=== PATIENT | male | born 1985 | race Caucasian/White ===

== ENCOUNTER 2019-01-04 13:01 | Emergency (ER) | payer BC, OTHER ==
[2019-01-04 13:49] LABS: #Basophils 0.1 thou/uL (0.0-0.2); #Eosinphils 0.1 thou/uL (0.0-0.7); #Lymphocytes 1.6 thou/uL (1.20-3.40); #Monocytes 0.6 thou/uL (0.11-0.59); #Neutrophils 5.4 thou/uL (1.40-6.50); %Basophils 1.1 % (0.0-1.0); %Eosinophils 1.9 % (0.0-10.0); %Lymphocytes 20.8 % (21.0-51.0); %Neutrophils 69.3 % (42.0-75.0); Hemoglobin 15.3 g/dL (14.0-18.0); Mean Corpuscular HGB CONC 34.8 g/dL (32.0-36.0); Mean Corpuscular Hemoglobin 30.5 pg (27.0-31.0); Mean Corpuscular Volume 87.5 fL (78.0-98.0); Mean Platelet Volume 8.9 fL (7.4-10.4); Platelet Count 183 thou/uL (130-400); RBC Distribution Width 10.4 % (11.5-14.5); Red Blood Cell (RBC) Count 5.02 mill/uL (4.70-6.10); White Blood Cell (WBC) Count 7.8 thou/uL (4.8-10.8)
[2019-01-04] MEDS ORDERED: Mag-Al Plus 1200 MG/1200 MG/120 MG/30 ML UDCUP ONE (13:50)
[2019-01-04] MEDS ORDERED: Ondansetron PF 4 MG/2 ML Vial ONE (13:50)
[2019-01-04] MEDS ORDERED: Lidocaine Viscous Sol 2% 15 ml UD Cup ONE (13:50)
[2019-01-04 14:03] LABS: ALT (SGPT) 28 U/L (8-55); AST (SGOT) 22 U/L (5-34); Albumin 4.5 g/dL (3.5-5.0); Alkaline Phosphatase 76 U/L (40-150); Anion Gap 14 mmol/L (10-20); BUN (Urea Nitrogen) 17 mg/dL (8.9-20.6); Bilirubin, Total 0.4 mg/dL (0.2-1.2); Calc. Creatinine Clearance 0 mL/min (70-130); Calcium 9.1 mg/dL (7.8-10.44); Carbon Dioxide 24 mmol/L (22-29); Chloride 106 mmol/L (98-107); Estimated GFR-MDRD 82; Globulin 2.9 g/dL (2.4-3.5); Glucose 98 mg/dL (70-105); Lipase 46 U/L (8-78); Potassium 4.1 mmol/L (3.5-5.1); Protein, Total 7.4 g/dL (6.0-8.3); Sodium 140 mmol/L (136-145)
--- NOTE | 2019-01-04 14:08 | RAD ---
Portable frontal chest radiograph: 01/04/2019 COMPARISON: None HISTORY: Nausea, epigastric pain, chest pain FINDINGS: Lungs are clear. Heart and mediastinal contours appear within normal limits. IMPRESSION: No acute findings.
== END 2019-01-04 14:52 | disposition home or self-care (01) ==
LOC: SCSER 13:01
DX: R10.13 Epigastric pain (principal)
CPT/HCPCS: 71045; 80053; 83690; 84484; 85025; 93005; 96361; 96374; J2405